=== PATIENT | male | born 1960 | race Caucasian/White ===

== ENCOUNTER 2025-04-28 06:22 | Day surgery (SDC) | payer BC, SELFPAY | END 2025-04-28 10:52 | disposition home or self-care (01) | LOC: GI 06:22 | PROVIDERS: ATTENDING PHYSICIAN Surgery | DX: Z12.11 Encounter for screening for malignant neoplasm of colon (principal); Z85.038 Personal history of other malignant neoplasm of large intestine | CPT/HCPCS: G0105 ==